=== PATIENT | female | born 1970 | race Caucasian/White ===

== ENCOUNTER 2017-04-06 12:13 | Outpatient (CLI) | payer BC | END 2017-04-06 23:59 | disposition home or self-care (01) | LOC: MRI 12:13 | DX: M51.26 Other intervertebral disc displacement, lumbar region (principal) | CPT/HCPCS: 72146-TC ==

== ENCOUNTER 2017-05-17 08:20 | Outpatient (CLI) | payer BC | END 2017-05-17 23:59 | disposition home or self-care (01) | LOC: MRI 08:20 | DX: M50.323 Other cervical disc degeneration at C6-C7 level (principal); M50.223 Other cervical disc displacement at C6-C7 level | CPT/HCPCS: 72141-TC ==